=== PATIENT | male | born 1970 | race Caucasian/White ===

== ENCOUNTER → 2023-02-12 | Outpatient (CLI) | payer BC | END | disposition home or self-care (01) | LOC: RAD 16:39 | PROVIDERS: ATTEND Physician Assistant | DX: S92.911A Unspecified fracture of right toe(s), initial encounter for closed fracture (principal); M25.474 Effusion, right foot; X58.XXXA Exposure to other specified factors, initial encounter; Y93.89 Activity, other specified; Y92.89 Other specified places as the place of occurrence of the external cause; Y99.8 Other external cause status ==